=== PATIENT | female | born 1995 | race Caucasian/White ===

== ENCOUNTER 2021-11-05 20:01 | Emergency (ER) | payer OTHER, SELFPAY ==
[2021-11-05 21:08] VITALS: BP 143/74; PULSE 88; RESP 16; TEMP 36.8; O2SAT 97; BMI 35.2
--- NOTE | 2021-11-06 04:06 | ED.HA ---
HPI - Headache General Chief Complaint: Headache Stated Complaint: migraine and nausea Time Seen by Provider: 11/06/21 03:59 Source: patient Mode of arrival: ambulatory Limitations: no limitations History of Present Illness HPI Narrative: Patient comes to the emergency room complaining of migraine headache that started earlier today. Patient states that she has previously been diagnosed with migraines, states that her neurologist retired and has not had any medication prescribed to her since then. Patient took rpjl-tai-[id number] medications in the morning but did not help. Patient complaining of nausea, no vomiting, no visual changes. No neck pain. Related Data Previous Rx's Medication Instructions Recorded metoclopramide HCl 5 mg tablet 5 mg PO DAILY PRN nausea and 11/06/21 (Reglan) vomiting #10 tabs sumatriptan succinate 50 mg tablet See Rx Instructions PO .COMPLEX 11/06/21 #10 tabs Allergies Allergy/AdvReac Type Severity Reaction Status Date / Time No Known Allergies Allergy Unverified 12/10/19 16:43 [No Known Allergies*] Review of Systems Review of Systems: Constitutional : No Weight loss, No Fever, No Chills, No Night Sweats, No Fatigue, No Malaise ENT/Mouth : No Hearing loss, No Ear Pain, No Nasal Congestion, No Sinus Pain, No Hoarseness, No sore throat, No Rhinorrhea, No Swallowing Difficulty Eyes: No Eye Pain, No Swelling, No Redness, No Foreign Body, No Discharge, No Vision Changes Cardiovascular : No Chest Pain, No SOB, No Dyspnea on Exertion, No Orthopnea, No Edema, No Palpitations Respiratory : No Cough, No Sputum, No Wheezing, No Smoke Exposure, No Dyspnea Gastrointestinal : Complaining of Nausea, No Vomiting, No Diarrhea, No Constipation, No abdominal Pain, No Hematochezia, No Melena Genitourinary : no irregular bleeding, No Dysuria, No Urinary Frequency, No Hematuria, No Urinary Incontinence, No Urgency, No Flank Pain, No Urinary Flow Changes, No Hesitancy Musculoskeletal : No joint pain, No Myalgias, No Joint Swelling Skin : No Skin Lesions, No rash Neuro : No Weakness, No Numbness, No Paresthesias, No Loss of Consciousness, No Dizziness, complaining of a migraine headache Psych : No Anxiety/Panic, No Depression, No SI/HI/AH/VH, No Social Issues, Heme/Lymph: No Bruising, No Bleeding,No Lymphadenopathy Endocrine : No Polyuria, No Polydipsia, No Temperature Intolerance [facility] Past Medical History Medical History (Updated 11/06/21 @ 04:07 by Stefany Ferrara MD) Migraine Social History Social History Advance Directives: No Advance Directives Information Provided: No Physical Exam Vital Signs: Vital Signs: Last Vital Signs Temp 98.2 F 11/05/21 21:08 Pulse 88 11/05/21 21:08 Resp 16 11/05/21 21:08 BP 143/74 H 11/05/21 21:08 Pulse Ox 97 11/05/21 21:08 O2 Del Method 11/05/21 21:08 BMI result Body Mass Index 35.2 Const: Other: Appearance: Alert. Oriented X3. No acute distress. Well-appearing Eyes: Pupils equal, round and reactive to light. Does not seem to have photophobia ENT: Pharynx normal. Neck: Normal inspection. Neck supple. No lymph nodes noted. No crepitus CVS: Normal heart rate and rhythm. Pulses normal. Normal S1 and S2 Respiratory: No respiratory distress. Breath sounds normal. No Wheezing. No rales Abdomen: Soft and nontender. No rigidity. No distention. Skin: Skin warm and dry. Normal skin color. Normal skin turgor. Extremities: No lower extremity edema. No Lacerations. No Rash Neuro: Oriented X 3. No motor deficit. No sensory deficit. Moving all extremities. No slurred speech. CN 2 through 12 grossly intact Psych: calm, cooperative, normal affect Course Course Course Narrative: Patient receiving IV fluids, IV Toradol, Reglan and Benadryl 04:55, patient states she feels much better, headache has resolved Patient states that she has used sumatriptan in the past with good results. Discharge Plan Discharge Clinical Impression: Migraine Patient Disposition: Home, Self-Care Instructions: Migraine Headache (ED) Additional Instructions: Please follow-up with your primary care physician tomorrow. If you have any worsening or new symptoms, please return to the emergency room or call 911 Prescriptions: New sumatriptan succinate 50 mg tablet See Rx Instructions .ROUTE .COMPLEX Qty: 10 0RF Rx Instructions: take 1 tab at onset of headache; if no relief may repeat 1 tab after at least 2 hrs; max = 4 tabs/24 hr metoclopramide HCl [Reglan] 5 mg tablet 5 mg PO DAILY PRN (Reason: nausea and vomiting) Qty: 10 0RF
[2021-11-06] MEDS: Ketorolac Tromethamine 30 MG/ML VIAL IVPUSH (04:22)
[2021-11-06] MEDS: diphenhydrAMINE HCL 50 MG/ML VIAL 25 MG IVPUSH (04:22)
[2021-11-06] MEDS: Metoclopramide HCl 10 MG/2 ML VIAL IVPUSH (04:23)
[2021-11-06] MEDS: 0.9 % Sodium Chloride 1,000 ML 999 ML IVCONT (04:24)
== END 2021-11-06 05:24 | disposition home or self-care (01) ==
PROVIDERS: Emergency Provider Emergency Medicine; PCP Nurse Practitioner Family
DX: G43.909 Migraine, unspecified, not intractable, without status migrainosus (principal)
CPT/HCPCS: 96374; 96375; 99284; J1200; J1885; J2765

== ENCOUNTER 2023-10-01 19:38 | Emergency (ER) | payer OTHER, SELFPAY ==
--- NOTE | 2023-10-01 20:58 | ED_ITS ---
HPI - General Adult General Chief complaint: Headache Stated complaint: Migraine Time Seen by Provider: 10/01/23 23:38 Source: patient Mode of arrival: ambulatory Limitations: no limitations History of Present Illness HPI narrative: Patient is a 27-year-old female who presents to the emergency department for evaluation a migraine headache. She reports history of chronic migraines since she was a child. States she has not seen a neurologist in many years. She typically uses bzbe-haj-nqqnimm medications such as ibuprofen and Tylenol but has not had any relief. In the past she has tried sumatriptan as well with some relief. This headache has been constant for the past 3 days diffusely across the frontal region with associated photophobia and intermittent nausea. She denies dizziness, vision changes, neck pain, neck stiffness, URI symptoms, any recent head injury. Related Data Previous Rx's ?Medication ?Instructions ?Recorded metoclopramide HCl 5 mg tablet 5 mg PO DAILY PRN nausea and 11/06/21 (Reglan) vomiting #10 tabs sumatriptan succinate 50 mg tablet See Rx Instructions PO .COMPLEX 11/06/21 #10 tabs Allergies Allergy/AdvReac Type Severity Reaction Status Date / Time No Known Allergies Allergy Verified 10/01/23 21:01 [No Known Allergies*] Review of Systems Review of Systems: Yes all other systems are reviewed and are negative PMFSH Past Medical History Attestation statement: The following information was validated with the patient. Source: old records reviewed Medical History Migraine Social History Social History Advance Directives: No Advance Directives Information Provided: No Physical Exam ED Vital Signs: Vital Signs - 24 hr 10/01/23 20:59 10/01/23 22:57 Temperature 97.8 F 98.5 F Pulse Rate 86 84 Respiratory Rate 18 16 Blood Pressure 138/56 L 125/74 Pulse Oximetry 97 96 Oxygen Delivery Method Room Air Room Air BMI result Body Mass Index 44.0 Appearance: Alert.?Oriented to person, place and time. No acute distress.?Normal affect. Eyes: Pupils equal, round and reactive to light.? ENT: Pharynx normal.?? Neck: Normal inspection.? Neck supple.?? CVS: Heart sounds normal. Normal heart rate and rhythm.? Pulses normal.?? Respiratory: No respiratory distress.? Lung sounds clear to auscultation bilaterally?? Abdomen: Soft and non-tender. Normoactive bowel sounds. Skin: Skin warm and dry.? Normal skin color.? Extremities: No lower extremity edema.? Neuro: Moves all extremities spontaneously. Sensation intact bilaterally. CN II- XII intact. No focal neuro deficits. Ambulates with normal steady gait. Course Course Course Narrative: RME, this is a rapid medical exam performed by Meliton Mcallister please refer to primary provider for complete H&P- 27 year old female presents for evaluation of headaches. She has a history of migraines and has had this headache for the last 3 days. She does not currently have a neurologist. She complains of nausea and photophobia. She complains of headaches almost daily. Reevaluation(s) Reevaluation #1: Advised by nursing staff that patient left without completing treatment. She had 1 IV insertion attempts that was unsuccessful and evidently she became quite upset after that and walked out of the department with steady gait. Medical Decision Making Medical Decision Making MDM Narrative: Patient is a 27-year-old female past medical history of migraines who presents to the emergency department reporting a migraine headache. Overall she is well- appearing, nontoxic, afebrile. She has no focal neurological deficits. Symptoms at this time most consistent with migraine, clinically have low suspicion for ICH, SDH, intracranial mass, would defer CT of the head is there is no acute change from her typical migraine pattern. Given she has not received relief from uowj-bhc-xzveyzs analgesics will trial 1 L normal saline IV fluid, Toradol IV, Reglan IV, Benadryl IV and plan to re-evaluate. Differential Diagnosis Differential Diagnoses: The differential diagnosis associated with the presentation includes (See narrative above) Admission/Observation Consideration of admission/observation: Escalation of care including admission/observation considered Lab Data MDM Lab Attestation statement: I reviewed the patient's lab results. Urinalysis with pyuria, squamous epithelial cells and 4+ urine bacteria, no symptoms, most likely urogenital contamination. HCG negative. Labs: Lab Results 10/01/23 Range/Units 22:52 Urine Color Yellow Urine Appearance Turbid Urine pH 7.5 (5.0-9.0) Ur Specific [place] 1.025 (1.005-1.025) Urine Protein Trace (Neg-Trace) mg/dL Urine Glucose (UA) Negative (Negative) mg/dL Urine Ketones Negative (Negative) mg/dL Urine Blood Negative (Negative) Urine Nitrite Negative (Negative) Ur Leukocyte Esterase Small (1+) H (Negative) Urine RBC 0-2 (0-2) /HPF Urine WBC 21-50 H (0-5) /HPF Ur Squamous Epith Cells >20 (0-2) /HPF Urine Bacteria 4+ (None Seen) Hyaline Casts 0-2 (0-2) /LPF Urine Test NEGATIVE (NEGATIVE) Tests considered The following testing was considered but not selected: See narrative above Prescription Management I considered prescription management with: Pain Medication Discharge Plan Discharge Clinical Impression: Migraine Patient Disposition: Left W/O Completing Treatment Additional Instructions: Please follow-up with your primary care provider. You can return back to emergency department any new or worsening symptoms or concerns. Prescriptions: No Action sumatriptan succinate 50 mg tablet See Rx Instructions .ROUTE .COMPLEX Qty: 10 0RF Rx Instructions: take 1 tab at onset of headache; if no relief may repeat 1 tab after at least 2 hrs; max = 4 tabs/24 hr metoclopramide HCl [Reglan] 5 mg tablet 5 mg PO DAILY PRN (Reason: nausea and vomiting) Qty: 10 0RF Discharge Date/Time: 10/02/23 01:26
[2023-10-01 20:59] VITALS: BP 138/56; PULSE 86; RESP 18; TEMP 36.6; O2SAT 97; BMI 44.0
[2023-10-01 22:57] VITALS: BP 125/74; PULSE 84; RESP 16; TEMP 36.9; O2SAT 96
[2023-10-01 23:06] LABS: Appearance Urine Turbid; Color Urine Yellow; Glucose Urine UA Negative (Negative); Leukocyte Esterase Urine Small (1+) (Negative); Nitrite Urine Negative (Negative); PH 7.5 (5.0-9.0); Specific Gravity - Urine 1.025 (1.005-1.025); UMIC TRIGGER UACC YES; Urine Blood Negative (Negative); Urine Ketones Negative (Negative); Urine Protein Trace mg/dL (Neg-Trace)
[2023-10-01 23:08] LABS: Urine Pregnancy NEGATIVE (NEGATIVE)
[2023-10-01 23:11] LABS: UPreg QC Valid YES
[2023-10-01 23:12] LABS: Bacteria Urine 4+ (None Seen); Hyaline Casts Urine 0-2 /LPF (0-2); RBC Urine 0-2 /HPF (0-2); Squamous Epithelial Cell Urine >20 /HPF (0-2); UACC Culture Trigger YES; WBC Urine 21-50 /HPF (0-5)
--- NOTE | 2023-10-02 01:21 | PC.NURSE ---
pt wanted to leave, pt made aware of the doctors being tied up with a priority 1 pt. pt still wanted to leave, pt had no iv this rn checked.
== END 2023-10-02 01:26 | disposition left against medical advice (07) ==
PROVIDERS: Physician Assistant; Emergency Provider Emergency Medicine; PCP Nurse Practitioner Family
DX: G43.809 Other migraine, not intractable, without status migrainosus (principal); H53.149 Visual discomfort, unspecified; R11.0 Nausea
CPT/HCPCS: 81001; 81025; 87086; 99283

== ENCOUNTER 2025-02-04 08:12 | Emergency (ER) | payer OTHER, SELFPAY ==
--- NOTE | ~2025-02-04 | US_ITS ---
EXAMINATION: US OBSTETRICAL ULTRASOUND CLINICAL INFORMATION: Vaginal bleeding and cramping. Rule out ectopic . COMPARISON: None available. LMP: 12/26/2024. Gestational age by maternal dates is 5 weeks 5 days. Estimated date of delivery by maternal dates is 10/02/2025. TECHNIQUE: Transabdominal and transvaginal first trimester OB ultrasound. Transabdominal imaging limited due to empty bladder. FINDINGS: The uterus is anteverted and normal in size and shape. Endometrial thickness measures 0.7 cm. No intrauterine gestational sac is seen. There is a 1.7 x 1.7 x 1.6 cm subserosal right uterine body fibroid. There is a 6 mm intramural cyst in the fundus. MATERNAL ADNEXA: The right maternal ovary measures 4 x 1.4 x 1.8 cm. Normal The left maternal ovary is not seen. There is no significant maternal adnexal mass. No maternal pelvic ascites. US/US OB pelvic and transvaginal IMPRESSION: No intrauterine seen. Normal right ovary. Left ovary not seen. No adnexal mass or ascites. Differential would include early intrauterine that is too early to see, miscarriage and ectopic . Correlation with quantitative beta hCG and follow-up pelvic ultrasound in one week recommended. Electronically signed by: Zoya Morgan MD 02/04/2025 10:44 AM SOFYA
[2025-02-04 08:28] VITALS: BP 125/75; PULSE 96; RESP 16; TEMP 36.7; O2SAT 96; BMI 41.7
[2025-02-04 08:40] LABS: MANUAL DIFF FLAG NO
[2025-02-04 08:47] VITALS: BP 122/78; PULSE 104; RESP 20; TEMP 37.1; O2SAT 96
--- NOTE | 2025-02-04 08:56 | ED_ITS ---
HPI - General Chief complaint: Vaginal Bleeding Stated complaint: cramping vaginal bleeding Time Seen by Provider: 02/04/25 08:35 Source: patient, RN notes reviewed and old records reviewed Mode of arrival: ambulatory Limitations: no limitations History of Present Illness ED Provider: NOEMI Prado HPI Narrative: 29-year-old female with medical history of migraines presents to the ED due to an episode of vaginal bleeding. Patient states she went to the bathroom this morning, and when wiping she noticed small amount of bright red blood on the tissue paper that is associated with lower abdominal cramping that is now more mild in intensity. She reports LMP approximately 6 weeks ago 12/26/24, and is trying to get established with [facility]. She has not yet started vitamins. Additionally, patient states she has had a sinus infection due to significant nasal congestion and pressure in her sinuses over the last 9 days, and feels as if her symptoms have been constant, they have not worsened but are not improving. Denies nausea, vomiting, diarrhea, urinary symptoms Related Data Previous Rx's ?Medication ?Instructions ?Recorded metoclopramide HCl 5 mg tablet 5 mg PO DAILY PRN nause a and 11/06/21 (Reglan) vomiting #10 tabs sumatriptan succinate 50 mg tablet See Rx Instructions PO .COMPLEX 11/06/21 #10 tabs amoxicillin 875 mg-potassium 1 tab PO BID #14 tabs clavulanate 125 mg tablet Allergies Allergy/AdvReac Type Severity Reaction Status Date / Time No Known Allergies (No Known Allergy Verified 02/04/25 08:30 Allergies*) [facility] Past Medical History Medical History Migraine Social History Social History Advance Directives: No Advance Directives Information Provided: No Physical Exam 2 Vital Signs: Vital Signs: Last Vital Signs Temp 98 F 02/04/25 12:05 Pulse 91 02/04/25 12:05 Resp 18 02/04/25 12:05 BP 121/80 02/04/25 12:05 Pulse Ox 99 02/04/25 12:05 O2 Del Method Room Air 02/04/25 12:05 BMI result Body Mass Index 41.7 GENERAL APPEARANCE: ?AxOx4, generally well-appearing, no acute distress. HEENT: ?NC, AT. MMM. EOMI, clear conjunctiva, oropharynx clear. NECK: ?Supple without lymphadenopathy.? No stiffness or restricted ROM. HEART:? Normal rate and regular rhythm, normal S1/S2, no m/r/g LUNGS:? CTAB, moving air well. No crackles or wheezes are heard. ABDOMEN: ?Soft, nontender, nondistended, no rigidity : no lesions, vesicles, or abnormalities visualized on the external genitalia, mild amount of blood and mucus coming from cervical os BACK: No CVAT, no obvious deformity. EXTREMITIES: ?Without cyanosis, clubbing or edema. NEUROLOGICAL: ?Grossly nonfocal. Alert and oriented, moving all 4 extremities. Observed to ambulate with normal gait. Skin: ?Warm and dry without any rash. Medical Decision Making Medical Decision Making MDM Narrative: 9-year-old female with medical history of migraines presents to the ED due to an episode of vaginal bleeding when wiping after urinating this morning with small volume of bright red blood on tissue associated with lower abdominal cramping that was worse this morning but feels more mild now. Endorses sinus infection over past 9 days with nasal congestion and pressure in the sinuses. VS on initial observation-BP 125/75, pulse rate of 96, respiratory rate of 16, afebrile with oral temp of 90 degrees, O2 saturation 96 percent on room air. On physical exam lungs clear to auscultation bilaterally, cardiac exam reveals normal rate and rhythm without murmurs/rubs/gallops, abdomen is soft, nondistended, no guarding, no rigidity, nontender to palpation. Labs reveal leukocytosis of 13.4, H&H stable, mild transaminitis with an AST of 36, ALT of 39, no electrolyte abnormalities, beta hCG is 26. UA with 1+ urine protein, 3+ urine blood, 1+ leukocyte esterase, >20RBC, 11-20 WBC, 6-10 squamous epithelial cells, 1+ urine bacteria. Due to patient with vaginal bleeding, cramping, with a beta hCG of 26 which should be much higher at 6 weeks of gestational age, will obtain ultrasound to evaluate for ectopic . Course 10:56- US does not reveal intrauterine , no significant fluid seen, recommendation is for repeat pelvic ultrasound in 1 week. I spoke with OBGYN Dr. Short who recommends the patient return to the ED in 48 hours for re-evaluation with hCG quant to determine if repeat ultrasound is needed or not. I counseled patient on strict return precautions including increased vaginal bleeding, increased abdominal pain, nausea, and vomiting. Patient is not established with OBGYN and is concerned of where she can follow up. I explained she can return to to the ED for repeat HCG and transvaginal ultrasound if she is unable to get care by her primary care provider or public works inspector. Patient is planning on returning to ED for follow up. Patient has a leukocytosis of 13.4, has been experiencing nasal congestion, and pressure in the sinuses over the last 9 days. Patient will be discharged with 7 day course of Augmentin which is safe in 1st trimester should the patient have a viable . Patient feels well enough to go home for self- care, and is in agreement with the plan. Differential Diagnosis Differential Diagnoses: The differential diagnosis associated with the presentation includes Threatened Incomplete Inevitable Complete miscarriage Septic miscarriage ectopic Admission/Observation Consideration of admission/observation: Escalation of care including admission/observation considered Lab Data MDM Lab Attestation statement: I reviewed the patient's lab results. 02/04/25 08:37 02/04/25 08:37 Labs: Lab Results 02/04/25 02/04/25 Range/Units 08:37 09:30 WBC 13.4 H (4.8-10.8) X10*3/uL RBC 4.52 (4.20-5.50) X10*6/uL Hgb 13.8 (12.0-16.0) g/dl Hct 41.2 (37.0-47.0) % MCV 91.2 (80.0-98.0) fL MCH 30.5 (27.0-33.0) pg MCHC 33.5 (31.0-35.0) g/dl RDW 13.1 (11.0-16.0) % Plt Count 336 (160-400) X10*3/uL MPV 9.6 (9.4-12.3) fL Immature Gran % (Auto) 0.6 H (0.0-0.4) % Neut % (Auto) 53.7 (45-73) % Lymph % (Auto) 33.0 (20-40) % [place] % (Auto) 7.5 (2-11) % Eos % (Auto) 4.6 H (0-4) % Baso % (Auto) 0.6 (0-2) % Lymph # (Auto) 4.4 (1.2-4.9) X10*3/uL [place] # (Auto) 1.0 (0.1-1.2) X10*3/uL Eos # (Auto) 0.6 H (0.0-0.4) X10*3/uL Baso # (Auto) 0.1 (0.0-0.2) X10*3/uL Abs Immat Gran (auto) 0.08 H (0.00-0.03) X10*3/uL Absolute Neuts (auto) 7.2 (2.0-8.3) x10*3/uL Absolute Nucleated RBC 0.000 (0.0-0.012) X10*3/uL Nucleated RBC % (auto) 0.0 (0.0-0.2) /100WBC Sodium 138 (135-145) mmol/L Potassium 4.5 (3.3-5.1) mmol/L Chloride 111 H (96-108) mmol/L Carbon Dioxide 18 L (22-29) mmol/L Anion Gap 14 (12-20) BUN 13 (9-16) mg/dL Creatinine 0.73 (0.5-1.4) mg/dL Estim Creat Clear Calc 125.5 Estimated GFR > 60 Random Glucose 83 (60-115) mg/dL Calcium 9.0 (8.4-10.2) mg/dL Total Bilirubin 0.2 (0.0-1.0) mg/dL AST 36 H (5-31) U/L ALT 39 H (0-31) U/L Alkaline Phosphatase 88 (39-117) U/L Total Protein 7.2 (6.5-8.0) g/dL Albumin 4.0 (3.5-5.0) g/dL Beta HCG, Quant 26 mIU/mL Urine Color Dark Yellow Urine Appearance Cloudy Urine pH 5.5 (5.0-9.0) Ur Specific [place] 1.025 (1.005-1.025) Urine Protein 30 (1+) H (Neg-Trace) mg/dL Urine Glucose (UA) Negative (Negative) mg/dL Urine Ketones Trace (Negative) mg/dL Urine Blood Large (3+) H (Negative) Urine Nitrite Negative (Negative) Ur Leukocyte Esterase Small (1+) H (Negative) Urine RBC >20 H (0-2) /HPF Urine WBC 11-20 H (0-5) /HPF Ur Squamous Epith Cells 6-10 (0-2) /HPF Urine Bacteria 1+ (None Seen) Hyaline Casts 0-2 (0-2) /LPF Independent Interpretation I performed an independent interpretation of an: Ultrasound Interpretation: I personally interpreted the ultrasound which does not reveal an intrauterine at this time, I agree with the radiologist's interpretation Radiology Impression Discussion of test interpretation with radiology: I have reviewed the radiologist's reading. Radiologist Impression: U/S OB transvaginal FINDINGS: The uterus is anteverted and normal in size and shape. Endometrial thickness measures 0.7 cm. No intrauterine gestational sac is seen. There is a 1.7 x 1.7 x 1.6 cm subserosal right uterine body fibroid. There is a 6 mm intramural cyst in the fundus. MATERNAL ADNEXA: The right maternal ovary measures 4 x 1.4 x 1.8 cm. Normal The left maternal ovary is not seen. There is no significant maternal adnexal mass. No maternal pelvic ascites. US/US OB pelvic and transvaginal IMPRESSION: No intrauterine seen. Normal right ovary. Left ovary not seen. No adnexal mass or ascites. Differential would include early intrauterine that is too early to see, miscarriage and ectopic . Correlation with quantitative beta hCG and follow-up pelvic ultrasound in one week recommended. Electronically signed by: Zoya Morgan MD 02/04/2025 10:44 AM [facility] [place] Dictated By: Zoya Morgan MD Signed By: <Electronically signed by Zoya Morgan MD in OV> 02/04/25 1044 Independent Historian Clinical information obtained from an independent historian. History obtained from or confirmed by: Spouse (Significant other at bedside) External Record Review External record reviewed: Inpatient record, Office record and Outpatient record Chronic Conditions Patient?s care impacted by: Other (6 weeks gestation) Discharge Plan Discharge Clinical Impression: First trimester bleeding Patient Disposition: Home, Self-Care Additional Instructions: You were evaluated in the emergency department due to vaginal bleeding during your 1st trimester of . Your ultrasound today did not see an intrauterine at this time, your blood work showed a beta hCG quant of 26 which is very low for suspected 6 weeks of gestation. You need to return to the emergency department in 48 hours for repeat hCG testing, and physical exam to determine if ultrasound is needed or not. Swabs for chlamydia, gonorrhea, bacterial vaginosis, Ginger, and trichomoniasis were taken today. If these are positive you will be called and is started on the appropriate treatment. You are being prescribed a 7 day course of Augmentin for sinus infection. Please complete the entire course of this medication even if symptoms improve. It is possible that you are experiencing a miscarriage or ectopic meaning the fetus is not attached to the uterine lining and may be attached within one of the fallopian tubes. Cramping and vaginal bleeding during this time is normal. Please return to the emergency department if you experience increased abdominal pain (sharp, stabbing pains), increased vaginal bleeding, dizziness, lightheadedness, nausea, vomiting, or any new/worsening/concerning symptoms. Prescriptions: New amoxicillin-pot clavulanate 875-125 mg tablet 1 tab PO BID Qty: 14 0RF No Action sumatriptan succinate 50 mg tablet See Rx Instructions .ROUTE .COMPLEX Qty: 10 0RF Rx Instructions: take 1 tab at onset of headache; if no relief may repeat 1 tab after at least 2 hrs; max = 4 tabs/24 hr metoclopramide HCl [Reglan] 5 mg tablet 5 mg PO DAILY PRN (Reason: nausea and vomiting) Qty: 10 0RF Stand Alone Forms: Work/School Release Print Language: Latvian
--- OUTSIDE RECORDS SUMMARY | 2025-02-04 08:59 | XMS_ITS | Encounter Summary ---
Author Organization [facility] Address [address] [place] [address] Phone Care Team Providers Care Sustainable Communities Designer Name Role Phone Marissa Morgan NP Primary Care Provider [phone] Reason for Visit * Reason Comments Med Refill Encounter Details Date Type Department Care Team (Late st Contact Info) Description 01/14/2020 Refill [facility] [place] [address] Clara Rodriges, Encounter for surveillance of contraceptive pills Social History Tobacco Use Types Packs/Day Years Used Date Smoking Tobacco: Never Comments:Never Smoker Alcohol Use Standard Drinks/Week Comments No 0 (1 standard drink = 0.6 oz pur e alcohol) Comments No Sex and Gender Information Value Date Recorded Sex Assigned at Not on file Legal Sex Female 6:16 PM EDT Gender Identity Not on file Sexual Orientation Straight 02/08/2020 10 :09 PM EST documented as of this encounter Miscellaneous Notes * Telephone Encounter - Erin Naik MA - 01/14/2020 11:16 AM EDT Last visit (telemed) 09/09/19, with negative blood preg. Left message for Janeen to call and schedule physical. documented in this encounter Plan of Treatment Not on file documented as of this encounter Visit Diagnoses Diagnosis Encounter for surveillance of contraceptive pills documented in this encounter Care Teams Sustainable Communities Designer Relationship Specialty Start Date End Date Marissa Morgan NP [facility] [place] [address] PCP - General Pediatrics 07/08/20 documented as of this encounter
--- OUTSIDE RECORDS SUMMARY | 2025-02-04 08:59 | XMS_ITS | Clinical Summary ---
Author Organization [facility] Address [address] [place] [address] Phone Care Team Providers Care Steeping Press Tender Name Role Phone Marissa Morgan NP Primary Care Provider [phone] Allergies Active Allergy Reactions Criticality Noted Date Comments Environmental Ragweed Medications ADDERALL XR 30 MG 24 hr capsule Take 1 tablet by mouth daily. 8 Active ADDERALL XR 5 MG 24 hr capsule Take 1 tablet by mouth daily. 8 Active buPROPion XL 150 MG 24 hr tablet TAKE ONE TABLET BY MOUTH EVERY 24 HOURS 1 0 Active Lactobacillus-Inul in ([facility]) capsule Take 1 capsule by mouth once daily. 3 0 Active guanFACINE 1 MG tablet Take 1 mg by mouth once daily. 2 0 Active venlafaxine 225 MG tablet sustained-release 24 hour 24 hr tablet Take 225 mg by mouth once daily. 1 0 Active norethindrone-ethi nyl estradiol-iron (Microgestin FE 1.530) 1.5-30 MG-MCG per tabletIndications: Encounter for surveillance of contraceptive pills Take 1 tablet by mouth once daily. 84 tablet 3 0 Active traZODone 50 MG tabletIndications: Other insomnia Take 1 tablet (50 mg total) by mouth nightly. 30 tablet 2 0 Active acyclovir 400 MG tabletIndications: Recurrent genital herpes TAKE ONE TABLET BY MOUTH THREE TIMES A DAY FOR 7 DAYS 21 tablet 0 Active cetirizine 10 MG tabletIndications: Seasonal allergic rhinitis due to other allergic trigger Take 1 tablet (10 mg total) by mouth once daily. 30 tablet 3 1 Active topiramate (Topamax) 100 MG tabletIndications: Intractable migraine without aura and without status migrainosus Take 1 tablet (100 mg total) by mouth daily. 30 tablet 3 1 Active CENTROVITE tabletIndications: Yeast infection TAKE 1 TABLET BY MOUTH DAILY. 30 each 3 1 Active Active Problems Problem Noted Date Diagnosed Date Migraine with aura 11/22/2016 Overview (11/28/2017): Classic migraine (346.00) Onset: 11/22/2016 Added by: Clara Rodriges Dysthymic disorder 11/07/2015 Overview (11/28/2017): Anxiety with depression (300.4) Onset: 11/07/2015 Added by: Clara Rodriges Assessment & Plan (01/03/2019 11:37 AM EDT): All medication provided by med provider Resolved Problems Problem Noted Date Diagnosed Date Resolved Date Sore throat 11/16/2019 02/08/2020 Assessment & Plan (11/16/2019 9:34 PM EDT): Differential includes AOM, pneumonia, viral URI, strep throat, COVID19. Rapid strep test negative, will send culture. No obvious COVID19+ contact but with sore throat will schedule for COVID testing. No signs of AOM or pneumonia. Most likely diagnosis is viral URI. Discussed supportive therapy with fluids and tylenol/ibuprofen for fever. Return for ear pain, persistent fever, trouble breathing or new symptom. Dysuria 11/16/2019 02/08/2020 Assessment & Plan (11/16/2019 9:35 PM EDT): With dysuria will check urinalysis and urine culture. If these are negative and COVID testing is negative will have patient in for a vaginal swab. Extrinsic asthma with exacerbation 09/02/2011 12/21/2017 Overview (11/28/2017): Extrinsic asthma, with (acute) exacerbation (493.02) Onset: 09/02/2011 Added by: Wendy Montalvo Immunizations Immunization Administration Dates Next Due DTaP 5 10/30/2002, 0,05/02/1998,03/02,1997 HPV, Quadrivalent 06/16/2010,12/16/2009,11/05/19 10 Hep A, ped/adol 04/02/2014,10/02/2013 Hep B, ped/adol 05/02/1998,1997,1997 Hib (PRP-T) 02/01/1999, 9,03/02/1998,12/29 IPV 10/30/2002, 0,03/02/1998,12/29 Influenza, injectable, quadrivalent 02/08/2020,1 Influenza, injectable, quadr ivalent, preservative free 12/18/2017,11/22/2016,12/31/2015,12/04,12/30/2013 Influenza, injectable, trivalent 11/04/2009 Influenza, intranasal, quadrivalent 01/03/2013 Influenza, intranasal, trivalent 12/28/2011,12/24 MMR 10/30/2002,10/31/1998 Meningococcal Conj (Menactra) MCV4P 11/07/2015,0 11/01/2008 PPD Test 03/06/1999 Tdap 01/01/2019,11/01/2008 Varicella 11/01/2008,08/01/2008,10/31/1998 Family History Medical History Relation Name Comments No Known Problems Maternal Grandfather No Known Problems Maternal Grandmother No Known Problems Mother Brenna No Known Problems Paternal Grandfather No Known Problems Paternal Grandmother No Known Problems Sister Aster Relation Name Status Comments Father not involved Alive Maternal Grandfather Maternal Grandmother Mother Brenna Alive Paternal Grandfather Paternal Grandmother Sister Aster Alive Social History Tobacco Use Types Packs/Day Years Used Date Smoking Tobacco: Never Tobacco Cessation:Counseling Given: No Comments:Never Smoker Alcohol Use Standard Drinks/Week Comments No 0 (1 standard drink = 0.6 oz pur e alcohol) Comments No Sex and Gender Information Value Date Recorded Sex Assigned at Not on file Legal Sex Female 6:16 PM EDT Gender Identity Not on file Sexual Orientation Straight 02/08/2020 10 :09 PM EST Last Filed Vital Signs Vital Sign Reading Time Taken Comments Blood Pressure 118/74 05/11/2020 3:10 PM EST Pulse 102 05/11/2020 3:10 PM EST Temperature 35.9 C (96.7 F) 05/11/2020 3:10 PM EST Respiratory Rate - - Oxygen Saturation - - Inhaled Oxygen Concentration - - Weight 80.8 kg (178 lb 3.2 oz) 05/11/2020 3:10 P M EST Height 154.9 cm (5' 1 ) 05/11/2020 3:10 PM EST Body Mass Index 33.67 05/11/2020 3:10 PM EST Plan of Treatment Health Maintenance Due Date Last Done Comments Influenza Vaccines (#1) 2024 02/08/20 20, 01/01/2019, 12/18/2017, Additional history exists COVID-19 Vaccine ( season) 2024 DTaP,Tdap,and Td Vaccines (8 - Td or Tdap) 01/01/2029 01/01/2019, 11/01/2008, 10/30/2002, Additional history exists Hepatitis B Vaccines Completed 05/02/1998, 1997, 1997 HIB Vaccines Completed 02/01/1999, 10/1998, 03/02/1998, Additional history exists IPV Vaccines Completed 10/30/2002, 04/25, 03/02/1998, Additional history exists MMR Vaccines Completed 10/30/2002, 10/31/1998 Varicella Vaccines Completed 11/01/2008, 0 08/01/2008, 10/31/1998 HPV Vaccines Completed 06/16/2010, 11/24, 11/04/2009 Hepatitis A Vaccines Completed 04/02/2014, 10/03/19 14 Meningococcal Vaccine Completed 11/07/2015, 009 Men B Vaccine Aged Out No longer elig ible based on patient's age to complete this topic Pneumococcal Vaccine Aged Out No long er eligible based on patient's age to complete this topic Procedures * Due to [place] [employer] law, this organization might not be sharing sensitive test results. Procedure Name Priority Date/Time Associated Diagnosis Comments THINPREP PAP AND C. TRACHOMATIS, N. GONORRHOEAE Routine 02/17/2020 11:39 AM EST Encounter for gynecological examination from Last 3 Months or Most Recently Relevant to Health Maintenance Results * Due to [place] [employer] law, this organization might not be sharing sensitive test results. * THIN PREP CT/GC AMP PROBE (02/17/2020 11:39 AM EST) C. TRACH AMP PROBE THIN PREP NEGATIVE (NEG) [facility] Comment: No Chlamydia Trachomatis RNA detected in this patient's sample (REFERENCE RANGE/NORMAL VALUE: NOT DETECTED) Note: This test uses tripe cooker- mediated amplification method to detect rRNA from C. Trachomatis GC AMP PROBE THIN PREP NEGATIVE (NEG) [facility] Comment: No Neisseria Gonorrhoeae RNA detected in this patient's sample (REFERENCE RANGE/NORMAL VALUE: NOT DETECTED) NOTE: This test uses tripe cooker-mediated amplification method to detect rRNA from N.Gonorrhoeae. A negative result does not preclude infection. In the case of a negative urine result, testing of an endocervical(female) or urethral (male) specimen is recommended if there is high clinical suspicion of infection. Due to very high sensitivity of Nucleic Acid Amplification Test, false positive results may occur. Therefore, specimen handling is extremely important. In patients in whom the disease is unlikely, additional sample for testing should be considered after an initial positive result. The performance characteristics of this test have not been evaluated in children. The Aptima Combo2 assay is not intended for the evaluation of suspected sexual abuse or for other medico-legal indications. The ordering provider should assess if the patient had consensual sex without risk of sexual abuse. Consult the [facility] if needed. Contact phone number . Therapeutic failure or success cannot be determined with the Aptima Combo2 assay since nucleic acid may persist following appropriate antimicrobial therapy. The Centers for Disease Control and Prevention (CDC) recommends confirmatory retesting using culture or a different nucleic acid amplification test when positive results occur, if indicated. Testing performed or reported by [facility], a Service of [facility], [facility] Kirstie Taylor, RADHA [address] Joseph Crawley MD, [employer]ator VAGINA (Vagina) 02/17/2020 1 1:39 AM EST 02/19/2020 12:10 PM EST Clara Rodriges DO LAB MICROBIOLOGY - GENERAL ELIZ PURI Final Result [facility] from Last 3 Months or Most Recently Relevant to Health Maintenance Care Teams Steeping Press Tender Relationship Specialty Start Date End Date Marissa Morgan NP [facility] [place] [address] PCP - General Pediatrics 07/08/20
--- OUTSIDE RECORDS SUMMARY | 2025-02-04 08:59 | XMS_ITS | Encounter Summary ---
Author Organization [facility] Address [address] [place] [address] Phone Care Team Providers Care Fulfillment Mail Clerk Name Role Phone Marissa Morgan NP Primary Care Provider [phone] Encounter Details Date Type Department Care Team (Late st Contact Info) Description 06/05/2010 Conversion Encounter [facility] [address] [place] [address] Social History Tobacco Use Types Packs/Day Years Used Date Smoking Tobacco: Never Assessed Comments Unknown Sex and Gender Information Value Date Recorded Sex Assigned at Not on file Legal Sex Female 6:16 PM EDT Gender Identity Not on file Sexual Orientation Straight 02/08/2020 10 :09 PM EST documented as of this encounter Plan of Treatment Not on file documented as of this encounter Visit Diagnoses Not on filedocumented in this encounter Care Teams Fulfillment Mail Clerk Relationship Specialty Start Date End Date Marissa Morgan NP [address] [place] [address] PCP - General Pediatrics 07/08/20 documented as of this encounter
[2025-02-04 09:01] LABS: Hematocrit 41.2 % (37.0-47.0); Hemoglobin 13.8 g/dl (12.0-16.0); Imm Gran Abs Auto 0.08 X10*3/uL (0.00-0.03); Imm Gran Pct Auto 0.6 % (0.0-0.4); Lymphocytes Absolute Auto 4.4 X10*3/uL (1.2-4.9); Mean Corpuscular HGB Conc 33.5 g/dl (31.0-35.0); Mean Corpuscular Hemoglobin 30.5 pg (27.0-33.0); Mean Corpuscular Volume 91.2 fL (80.0-98.0); NRBC Abs Auto 0.000 X10*3/uL (0.0-0.012); NRBC Pct Auto 0.0 /100WBC (0.0-0.2); Platelet Count 336 X10*3/uL (160-400); Red Blood Count 4.52 X10*6/uL (4.20-5.50); White Blood Count 13.4 X10*3/uL (4.8-10.8)
[2025-02-04 09:07] LABS: Alanine Aminotransferase 39 U/L (0-31); Albumin Level 4.0 g/dL (3.5-5.0); Alkaline Phosphatase 88 U/L (39-117); Anion Gap 14 (12-20); Aspartate Amino Transferase 36 U/L (5-31); Blood Urea Nitrogen 13 mg/dL (9-16); Calcium 9.0 mg/dL (8.4-10.2); Carbon Dioxide 18 mmol/L (22-29); Chloride 111 mmol/L (96-108); Creatinine Clr Calc Pharmacy 125.5; Estimated Glomerular Filt Rate > 60; Potassium 4.5 mmol/L (3.3-5.1); Sodium 138 mmol/L (135-145); Total Protein 7.2 g/dL (6.5-8.0)
[2025-02-04 09:40] LABS: Appearance Urine Cloudy; Glucose Urine UA Negative (Negative); PH 5.5 (5.0-9.0); Specific Gravity - Urine 1.025 (1.005-1.025); UMIC TRIGGER UACC YES
[2025-02-04 09:48] LABS: UACC Culture Trigger YES
--- NOTE | 2025-02-04 11:28 | PM.GYNCN ---
[employer] - CN: HPI Data of Consult Consult date: 02/04/25 Primary Care Provider: Rafia Mcguire NP Consult Narrative Narrative: I was consulted on Janeen Fish who is a 29 year old female presenting to the emergency room because of an episode of vaginal bleeding associated with mild pelvic cramping . LMP approximately 6 weeks ago 12/26/24, and is trying to get established with [facility]. She has not yet started vitamins. No other associated symptom The workup in the emergency room include the following: WBC= 13.4, H&H 13.8/41.2 HCG 26 Pelvic ultrasound showed the following: IMPRESSION: No intrauterine seen. Normal right ovary. Left ovary not seen. No adnexal mass or ascites. Differential would include early intrauterine that is too early to see, miscarriage and ectopic . Correlation with quantitative beta hCG and follow-up pelvic ultrasound in one week recommended. cc:: CC: OB [facility] Past Medical History Medical History Migraine Social History Social History Advance Directives: No Advance Directives Information Provided: No Meds Allergies Allergy/AdvReac Type Severity Reaction Status Date / Time No Known Allergies (No Known Allergy Verified 02/04/25 08:30 Allergies*) [employer] Physical Exam Vitals Vital signs: Temp Pulse Resp BP Pulse Ox O2 Del Method 98.7 F 104 H 20 122/78 96 Room Air 02/04/25 08:47 02/04/25 08:47 02/04/25 08:47 02/04/25 08:47 02/04/25 08:47 02/04/25 08:47 BMI result Body Mass Index 41.7 Additional Comments: Abdominal exam reported to be within normal [employer] - Results Labs 02/04/25 08:37 02/04/25 08:37 Labs: Short CBC 02/04/25 Range/Units 08:37 WBC 13.4 H (4.8-10.8) X10*3/uL Hgb 13.8 (12.0-16.0) g/dl Hct 41.2 (37.0-47.0) % Plt Count 336 (160-400) X10*3/uL BMP 02/04/25 08:37 Sodium 138 Potassium 4.5 Chloride 111 H Carbon Dioxide 18 L BUN 13 Creatinine 0.73 Calcium 9.0 Liver Function 02/04/25 Range/Units 08:37 Total Bilirubin 0.2 (0.0-1.0) mg/dL AST 36 H (5-31) U/L ALT 39 H (0-31) U/L Alkaline Phosphatase 88 (39-117) U/L Albumin 4.0 (3.5-5.0) g/dL Urine 02/04/25 Range/Units 09:30 Urine Color Dark Yellow Urine Appearance Cloudy Urine pH 5.5 (5.0-9.0) Ur Specific [place] 1.025 (1.005-1.025) Urine Protein 30 (1+) H (Neg-Trace) mg/dL Urine Glucose (UA) Negative (Negative) mg/dL Assessment and Plan (1) First trimester bleeding: Status: Acute Differential diagnosis include early , SAB or ectopic . Recommended to LUZ MARINA Dinh in the ER the following: Pelvic exam, GC/CT with BV panel. Instructions to be given to the patient to come back to emergency room in 48 hours for re-evaluation and repeat hCG quantitative. SAB/ectopic warnings to be given to the patient, she is to come back to ER in case of pelvic pain and or vaginal bleeding. I spent a total of 20 minutes reviewing the chart, communicating with the emergency room provider and documenting in the medical record.
[2025-02-04 12:05] VITALS: BP 121/80; PULSE 91; RESP 18; TEMP 36.6; O2SAT 99
[2025-02-04 13:26] VITALS: BP 121/80; PULSE 91; RESP 18; TEMP 36.6; O2SAT 99
[2025-02-04 15:30] LABS: Bacterial Vaginosis PCR NEGATIVE (Negative); Candida Group PCR NOT DETECTED (Not Detect); Candida glab krusei PCR NOT DETECTED (Not Detect); Trichomonas vaginalis PCR NOT DETECTED (Not Detect)
[2025-02-04 16:33] LABS: CT PCR NOT DETECTED (Not Detect.); NG PCR NOT DETECTED (Not Detect.)
== END 2025-02-04 13:58 | disposition home or self-care (01) ==
PROVIDERS: Emergency Provider Emergency Medicine; PCP Nurse Practitioner Family
DX: O20.9 Hemorrhage in early pregnancy, unspecified (principal); Z3A.01 Less than 8 weeks gestation of pregnancy; R10.22 Pelvic and perineal pain left side; Z79.899 Other long term (current) drug therapy
CPT/HCPCS: 36415; 76801; 76817; 80053; 81001; 81515; 84702; 85025; 87086; 87491; 87591; 99284

== ENCOUNTER → 2025-02-04 09:26 | Outpatient (BNV) | payer OTHER, SELFPAY | PROVIDERS: Emergency Provider Emergency Medicine; PCP Nurse Practitioner Family; Visit Provider Radiology Diagnostic Radiology | DX: O02.81 Inappropriate change in quantitative human chorionic gonadotropin (hCG) in early pregnancy (principal); N93.9 Abnormal uterine and vaginal bleeding, unspecified | CPT/HCPCS: 76801; 76817 ==

== ENCOUNTER 2025-02-06 07:57 | Emergency (ER) | payer OTHER, SELFPAY ==
[2025-02-06 08:09] VITALS: BP 124/77; PULSE 80; RESP 14; TEMP 37; O2SAT 98; BMI 41.6
--- NOTE | 2025-02-06 08:22 | ED_ITS ---
HPI - General Adult General Chief complaint: Recheck/Abnormal Lab/Rx Stated complaint: Issues Time Seen by Provider: 02/06/25 08:07 Source: patient Mode of arrival: ambulatory Limitations: no limitations History of Present Illness ED Provider: LUZ MARINA Velazquez HPI narrative: Chief Complaint: ?I was told to come back for a blood test after a possible miscarriage.? History of Present Illness: The patient is a G0 female who returns today for repeat quantitative ?-hCG testing after a suspected early loss. She was seen in this emergency department a few days ago for cramping and vaginal bleeding. At that visit, ?- hCG was positive; ultrasound reportedly showed no intrauterine , and she was advised to wait and return for follow-up labs. She received no medications or injections (no Rhogam). Currently she reports scant vaginal bleeding, using ~2?3 pads per hour, but states bleeding is less than at the prior visit. She denies abdominal pain or worsening cramping. Last menstrual period was in December. She has never been before, has no history of miscarriage, and has been trying to conceive. She is not on control and does not currently have an established laboratory director. Related Data Previous Rx's ?Medication ?Instructions ?Recorded metoclopramide HCl 5 mg tablet 5 mg PO DAILY PRN nause a and 11/06/21 (Reglan) vomiting #10 tabs sumatriptan succinate 50 mg tablet See Rx Instructions PO .COMPLEX 11/06/21 #10 tabs amoxicillin 875 mg-potassium 1 tab PO BID #14 tabs clavulanate 125 mg tablet Allergies Allergy/AdvReac Type Severity Reaction Status Date / Time No Known Allergies (No Known Allergy Verified 02/06/25 08:14 Allergies*) Review of Systems 2 Review of Systems: Yes all other systems are reviewed and are negative PMFSH Past Medical History Attestation statement: The following information was validated with the patient. Source: old records reviewed and nursing notes reviewed Medical History Migraine Social History Social History Advance Directives: No Advance Directives Information Provided: No Do you have a plan to hurt others: No Plan Patient : Yes Physical Exam ED Exam Exam: Appearance: Alert.? Oriented X3.? No acute distress.? Head: Normocephalic, atraumatic, no step-offs or deformities Eyes: Pupils equal, round and reactive to light.? ENT: Pharynx normal.? Neck: Normal inspection.? Neck supple.? CVS: Normal heart rate and rhythm.? Pulses normal.? Respiratory: No respiratory distress.? Breath sounds normal.? Abdomen: Soft and nontender.? Skin: Skin warm and dry.? Normal skin color.? Normal skin turgor.? Extremities: No lower extremity edema.? No calf ttp. 5/5 strength to bilateral upper and lower extremities Back: no CVA tenderness bilaterally Neuro: Oriented X 3.? No motor deficit.? No sensory deficit. CN 2-12 intact Vital Signs: Vital Signs - 24 hr 02/06/25 08:09 Temperature 98.6 F Pulse Rate 80 Respiratory Rate 14 Blood Pressure 124/77 Pulse Oximetry 98 Oxygen Delivery Method Room Air BMI result Body Mass Index 41.6 vss Course Reevaluation(s) Reevaluation #1: Patient's CBC with hemoglobin of 14.4, hematocrit 42.5 on previous visit on 02/04/2025 hemoglobin was 13.8 and hematocrit 41.2 this shows that hemoglobin and hematocrit are improving. Leukocytosis improved from last time. Patient denies abdominal pain. Chemistry with no acute findings needing intervention. Beta hCG did down trend from 26-5 today this does support likely diagnosis of threatened miscarriage. Time: 09:16 Reevaluation #2: I did ask OBGYN about this case as patient does not have her own OBGYN provider Dr. Short he would like patient to follow up in 48 hours for repeat hCG and follow up until hCG is 0. I did educate patient on findings of her lab results today. She is Rh negative no indication for RhoGAM. StrictReturn precautions have been discussed with the patient Time: 09:23 Medical Decision Making Medical Decision Making [facility] Narrative: 0833 The patient presents for follow-up after suspected early loss. Currently stable with scant bleeding and no abdominal pain. Problem #1: Possible early loss (rule out miscarriage) Assessment: History of positive ?-hCG with initial cramping/bleeding; currently minimal bleeding, hemodynamically stable, abdomen non-tender. Need to trend ?- hCG and assess Rh status. Plan: * Repeat quantitative -hCG today. * Obtain CBC to assess hemoglobin/hematocrit and to check for anemia. * Obtain CMP to screen electrolytes and metabolic profile. * Verify blood type/Rh; administer Rhogam if patient is Rh-negative and not previously given. * Arrange outpatient follow-up with OBGYN upon receipt of lab results. No sign of hemoodynamic instability, unlikley acute blood loss anemia or acute abdomen. Other differential includes implantation bleeding Differential Diagnosis Differential Diagnoses: The differential diagnosis associated with the presentation includes (No sign of hemoodynamic instability, unlikley acute blood loss anemia or acute abdomen. ) * Early loss (miscarriage): Most likely given recent positive ?-hCG, cramping, and vaginal bleeding in a woman attempting conception. * Ectopic : Should be considered in any patient with positive ?-hCG and bleeding, especially if no intrauterine is seen on ultrasound. * Anovulatory bleeding: Possible in women with irregular cycles, though patient reports normal cycles; less likely but considered. * Endometrial pathology (polyp, hyperplasia, malignancy): Postmenopausal status increases risk for endometrial abnormalities presenting as abnormal bleeding. * Coagulopathy: Bleeding disorders may present with abnormal uterine bleeding, though no personal or family history reported. * Cervical pathology (polyp, malignancy): Cervical lesions can cause postmenopausal bleeding; no pelvic exam performed to assess. * Vaginal atrophy or trauma: Atrophic changes or trauma in postmenopausal women may result in bleeding. * Hormonal imbalance: Endocrine dysfunction can cause abnormal bleeding, though less likely given age and history. * Other causes of abnormal uterine bleeding in postmenopausal women: Includes rare etiologies such as infection or medication side effects. Admission/Observation Consideration of admission/observation: Escalation of care including admission/observation considered Lab Data MDM Lab Attestation statement: I reviewed the patient's lab results. 02/06/25 08:38 02/06/25 08:38 Labs: Lab Results 02/06/25 Range/Units 08:38 WBC 10.9 H (4.8-10.8) X10*3/uL RBC 4.77 (4.20-5.50) X10*6/uL Hgb 14.4 (12.0-16.0) g/dl Hct 42.5 (37.0-47.0) % MCV 89.1 (80.0-98.0) fL MCH 30.2 (27.0-33.0) pg MCHC 33.9 (31.0-35.0) g/dl RDW 12.2 (11.0-16.0) % Plt Count 331 (160-400) X10*3/uL MPV 9.1 L (9.4-12.3) fL Immature Gran % (Auto) 0.5 H (0.0-0.4) % Neut % (Auto) 47.0 (45-73) % Lymph % (Auto) 41.3 H (20-40) % [place] % (Auto) 6.5 (2-11) % Eos % (Auto) 4.3 H (0-4) % Baso % (Auto) 0.4 (0-2) % Lymph # (Auto) 4.5 (1.2-4.9) X10*3/uL [place] # (Auto) 0.7 (0.1-1.2) X10*3/uL Eos # (Auto) 0.5 H (0.0-0.4) X10*3/uL Baso # (Auto) 0.0 (0.0-0.2) X10*3/uL Abs Immat Gran (auto) 0.05 H (0.00-0.03) X10*3/uL Absolute Neuts (auto) 5.1 (2.0-8.3) x10*3/uL Absolute Nucleated RBC 0.000 (0.0-0.012) X10*3/uL Nucleated RBC % (auto) 0.0 (0.0-0.2) /100WBC Sodium 140 (135-145) mmol/L Potassium 4.4 (3.3-5.1) mmol/L Chloride 107 (96-108) mmol/L Carbon Dioxide 23 (22-29) mmol/L Anion Gap 14 (12-20) BUN 11 (9-16) mg/dL Creatinine 0.71 (0.5-1.4) mg/dL Estim Creat Clear Calc 128.9 Estimated GFR > 60 Random Glucose 90 (60-115) mg/dL Calcium 9.6 D (8.4-10.2) mg/dL Total Bilirubin 0.2 (0.0-1.0) mg/dL AST 26 (5-31) U/L ALT 39 H (0-31) U/L Alkaline Phosphatase 91 (39-117) U/L Total Protein 7.4 (6.5-8.0) g/dL Albumin 4.4 (3.5-5.0) g/dL Beta HCG, Quant 5 mIU/mL Blood Type A Positive External Record Review External record reviewed: Inpatient record, Office record, Outpatient record, Prior outpatient labs, Prior outpatient radiology, Primary care record and Outside ED record Chronic Conditions Patient?s care impacted by: Other (obesity ) Discharge Plan Discharge Clinical Impression: Vaginal bleeding, Elevated serum hCG Patient Disposition: Home, Self-Care Instructions: Miscarriage (ED) Additional Instructions: Take your medications as prescribed. If you were prescribed antibiotics today, it is important that you take your medication to their entirety, do not skip any doses, do not finish them early. Follow-up with your primary care provider this week. Return to the emergency department with new or worsening symptoms. Such as fevers, chills, chest pain, shortness of breath, nausea, vomiting, dizziness, headache, vision changes, lethargy In case of emergency call 911 You have experienced a decrease in your hormone (hCG) level from 26 to 5 OBGYN recommends repeat HCG in 48 hours What to expect: * You may have some light bleeding or spotting for a few more days. This is normal. * Mild cramping can occur as your body recovers. * Your hCG level is now very low When to seek medical attention: * Heavy bleeding (soaking more than two pads per hour for two hours) * Severe abdominal pain or persistent cramping * Fever over 100.4?F (38?C) * Dizziness or feeling faint Emotional support: * Experiencing loss can be difficult. Support is available if you need to talk or seek counseling. Next steps: * If you wish to try for again, it is safe to do so after your next normal period. If you have any concerns or experience any of the symptoms listed above, please contact your healthcare provider promptly. Prescriptions: No Action sumatriptan succinate 50 mg tablet See Rx Instructions .ROUTE .COMPLEX Qty: 10 0RF Rx Instructions: take 1 tab at onset of headache; if no relief may repeat 1 tab after at least 2 hrs; max = 4 tabs/24 hr metoclopramide HCl [Reglan] 5 mg tablet 5 mg PO DAILY PRN (Reason: nausea and vomiting) Qty: 10 0RF amoxicillin-pot clavulanate 875-125 mg tablet 1 tab PO BID Qty: 14 0RF Referrals: Rafia Mcguire NP [Primary Care Provider, Internal Medicine] Print Language: Khmer
--- OUTSIDE RECORDS SUMMARY | 2025-02-06 08:27 | XMS_ITS | Clinical Summary ---
Author Organization [facility] Address [address] [place] [address] Phone Care Team Providers Care Knitting Machine Tender Name Role Phone Marissa Morgan NP Primary Care Provider [phone] Allergies Active Allergy Reactions Criticality Noted Date Comments Environmental Ragweed Medications ADDERALL XR 30 MG 24 hr capsule Take 1 tablet by mouth daily. 8 Active ADDERALL XR 5 MG 24 hr capsule Take 1 tablet by mouth daily. 8 Active buPROPion XL 150 MG 24 hr tablet TAKE ONE TABLET BY MOUTH EVERY 24 HOURS 1 0 Active Lactobacillus-Inul in ([facility]) capsule Take 1 capsule by mouth once [...] complete this topic Procedures * Due to [place] work law, this organization might not be sharing sensitive test results. Procedure Name Priority Date/Time Associated Diagnosis Comments THINPREP PAP AND C. TRACHOMATIS, N. GONORRHOEAE Routine 02/17/2020 11:39 AM EST Encounter for gynecological examination from Last 3 Months or Most Recently Relevant to Health Maintenance Results * Due to [place] work law, this organization might not be sharing sensitive test results. * THIN PREP CT/GC AMP PROBE (02/17/2020 11:39 AM EST) C. TRACH AMP PROBE THIN PREP NEGATIVE (NEG) [facility] Comment: No Chlamydia Trachomatis RNA detected in this patient's sample (REFERENCE RANGE/NORMAL VALUE: NOT DETECTED) Note: This test uses middle school counselor- mediated amplification method to detect rRNA from C. Trachomatis GC AMP PROBE THIN PREP NEGATIVE (NEG) [facility] Comment: No Neisseria Gonorrhoeae RNA detected in this patient's sample (REFERENCE RANGE/NORMAL VALUE: NOT DETECTED) NOTE: This test uses middle school counselor-mediated amplification method to detect rRNA from N.Gonorrhoeae. [...] without risk of sexual abuse. Consult the [facility] if needed. Contact phone number . Therapeutic failure or success cannot be determined with the Aptima Combo2 assay since nucleic acid may persist following appropriate antimicrobial therapy. The Centers for Disease Control and Prevention (CDC) recommends confirmatory retesting using culture or a different nucleic acid amplification test when positive results occur, if indicated. Testing performed or reported by [facility], a Service of [facility], [employer] Kirstie Taylor, [place] [address] Joseph Crawley MD, [employer] VAGINA (Vagina) 02/17/2020 1 1:39 AM EST 02/19/2020 12:10 PM EST Clara Rodriges DO LAB MICROBIOLOGY - GENERAL ELIZ PURI Final Result [facility] from Last 3 Months or Most Recently Relevant to Health Maintenance Care Teams Knitting Machine Tender Relationship Specialty Start Date End Date Marissa Morgan NP [facility] [facility] [place] [address] PCP - General Pediatrics 07/08/20
--- OUTSIDE RECORDS SUMMARY | 2025-02-06 08:27 | XMS_ITS | Encounter Summary ---
Author Organization [facility] Address [address] [place] [address] Phone Care Team Providers Care Web Manager Name Role Phone Marissa Morgan NP Primary Care Provider [phone] Reason for Visit * Reason Comments Med Refill Encounter Details Date Type Department Care Team (Late st Contact Info) Description 01/14/2020 Refill [facility] [facility] [place] [address] Clara Rodriges, Encounter for surveillance of contraceptive [...] pills documented in this encounter Care Teams Web Manager Relationship Specialty Start Date End Date Marissa Morgan NP [facility] [facility] [place] [address] PCP - General Pediatrics 07/08/20 documented as of this encounter
--- OUTSIDE RECORDS SUMMARY | 2025-02-06 08:28 | XMS_ITS ---
Author Name [facility] Organization Unknown History of Medication Use Medication Directions Dispensed Refills Start Date End Date Stat us amoxicillin 12/28/2024 active metronidazole 12/11/2024 active Macrobid 12/09/2024 active Pyridium 12/09/2024 active Adderall XR 11/25/2024 active cetirizine HCl 07/03/2024 active bupropion HCl 06/30/2024 active trazodone HCl 06/30/2024 active Encounters Encounter Type Encounter Reason Primary Diagnosis Location Date Ambulatory TBE Streptococcal pharyngitis [facility] ([facility]) 12/28/2024 Care Team Organization Name Specialty Phone Email Start Date End Da te [facility] 12/28/2024 [facility] 12/28/2024
--- OUTSIDE RECORDS SUMMARY | 2025-02-06 08:28 | XMS_ITS | Encounter Summary ---
Author Organization [facility] Address [address] [place] [address] Phone Care Team Providers Care Loans Officer Name Role Phone Marissa Morgan NP Primary Care Provider [phone] Encounter Details Date Type Department Care Team (Late st Contact Info) Description 06/05/2010 Conversion Encounter [facility] [address] [place] [address] Social History Tobacco Use Types Packs/Day Years [...] on filedocumented in this encounter Care Teams Loans Officer Relationship Specialty Start Date End Date Marissa Morgan NP [address] [place] [address] PCP - General Pediatrics 07/08/20 documented as of this encounter
[2025-02-06 08:44] LABS: Hematocrit 42.5 % (37.0-47.0); Hemoglobin 14.4 g/dl (12.0-16.0); Imm Gran Abs Auto 0.05 X10*3/uL (0.00-0.03); Imm Gran Pct Auto 0.5 % (0.0-0.4); Lymphocytes Absolute Auto 4.5 X10*3/uL (1.2-4.9); MANUAL DIFF FLAG NO; Mean Corpuscular HGB Conc 33.9 g/dl (31.0-35.0); Mean Corpuscular Hemoglobin 30.2 pg (27.0-33.0); Mean Corpuscular Volume 89.1 fL (80.0-98.0); NRBC Abs Auto 0.000 X10*3/uL (0.0-0.012); NRBC Pct Auto 0.0 /100WBC (0.0-0.2); Platelet Count 331 X10*3/uL (160-400); Red Blood Count 4.77 X10*6/uL (4.20-5.50); White Blood Count 10.9 X10*3/uL (4.8-10.8)
[2025-02-06 09:09] LABS: Alanine Aminotransferase 39 U/L (0-31); Albumin Level 4.4 g/dL (3.5-5.0); Alkaline Phosphatase 91 U/L (39-117); Anion Gap 14 (12-20); Aspartate Amino Transferase 26 U/L (5-31); Blood Urea Nitrogen 11 mg/dL (9-16); Calcium 9.6 mg/dL (8.4-10.2); Carbon Dioxide 23 mmol/L (22-29); Chloride 107 mmol/L (96-108); Creatinine Clr Calc Pharmacy 128.9; Estimated Glomerular Filt Rate > 60; Potassium 4.4 mmol/L (3.3-5.1); Sodium 140 mmol/L (135-145); Total Protein 7.4 g/dL (6.5-8.0)
[2025-02-06 09:30] VITALS: BP 118/70; PULSE 80; RESP 16; TEMP 37; O2SAT 98
--- NOTE | 2025-02-06 09:30 | PM.GYNCN ---
BINDER COVERSTITCH - CN: HPI Data of Consult Consult date: 02/06/25 Primary Care Provider: Rafia Mcguire NP Consult Narrative Narrative: I was consulted on Adiel Fish who is presenting to the emergency room today for repeat quantitative hCG testing after a suspected early loss. She was seen in this emergency department a few days ago for cramping and vaginal bleeding. At that visit, hCG was 26; ultrasound reportedly showed no intrauterine , and she was advised to wait and return for follow-up labs. She received no medications or injections (no Rhogam). Currently she reports scant vaginal bleeding and is less than at the prior visit. She denies abdominal pain or worsening cramping. If the repeat hCG today came back at 5 cc:: CC: OB [facility] Past Medical History Medical History Migraine Social History Social History Advance Directives: No Advance Directives Information Provided: No Do you have a plan to hurt others: No Plan Patient : Yes Meds Allergies Allergy/AdvReac Type Severity Reaction Status Date / Time No Known Allergies (No Known Allergy Verified 02/06/25 08:14 Allergies*) BINDER COVERSTITCH Physical Exam Vitals Vital signs: Temp Pulse Resp BP Pulse Ox O2 Del Method 98.6 F 80 14 124/77 98 Room Air 02/06/25 08:09 02/06/25 08:09 02/06/25 08:09 02/06/25 08:09 02/06/25 08:09 02/06/25 08:09 BMI result Body Mass Index 41.6 Additional Comments: Exam reported by Trudi Velazquez as benign, abdominal exam soft and nontender BINDER COVERSTITCH - Results Labs 02/06/25 08:38 02/06/25 08:38 Labs: Short CBC 02/06/25 Range/Units 08:38 WBC 10.9 H (4.8-10.8) X10*3/uL Hgb 14.4 (12.0-16.0) g/dl Hct 42.5 (37.0-47.0) % Plt Count 331 (160-400) X10*3/uL BMP 02/06/25 08:38 Sodium 140 Potassium 4.4 Chloride 107 Carbon Dioxide 23 BUN 11 Creatinine 0.71 Calcium 9.6 D Liver Function 02/06/25 Range/Units 08:38 Total Bilirubin 0.2 (0.0-1.0) mg/dL AST 26 (5-31) U/L ALT 39 H (0-31) U/L Alkaline Phosphatase 91 (39-117) U/L Albumin 4.4 (3.5-5.0) g/dL Assessment and Plan (1) First trimester bleeding: Status: Acute Recommended the following: Repeat hCG quantitative in 48 hours to followed down to 0, SAB/ectopic warnings to be given to the patient, instructions to be given to the patient to come back to emergency room in case of vaginal bleeding and or pelvic pain and follow-up in the office within 48 hours. I spent a total of 20 minutes reviewing the chart, talking to the emergency room provider and documenting in the medical record.
== END 2025-02-06 09:31 | disposition home or self-care (01) ==
PROVIDERS: Physician Assistant; Emergency Provider Emergency Medicine; PCP Nurse Practitioner Family
DX: N93.9 Abnormal uterine and vaginal bleeding, unspecified (principal); R89.1 Abnormal level of hormones in specimens from other organs, systems and tissues
CPT/HCPCS: 36415; 80053; 84702; 85025; 86900; 86901; 99283; 99284

== ENCOUNTER → 2025-02-06 08:17 | Outpatient (BNV) | payer OTHER, SELFPAY | PROVIDERS: Emergency Provider Emergency Medicine; PCP Nurse Practitioner Family; Visit Provider Obstetrics & Gynecology | DX: O20.9 Hemorrhage in early pregnancy, unspecified (principal) | CPT/HCPCS: 99283 ==

== ENCOUNTER 2025-02-08 08:58 | Emergency (ER) | payer OTHER, SELFPAY ==
[2025-02-08] VITALS (9 sets, daily range): BP systolic 101–132; BP diastolic 60–78; PULSE 96–110; RESP 14–19; TEMP 36.1–36.8; O2SAT 96–99; BMI 41.2
--- NOTE | ~2025-02-08 | CT_ITS ---
EXAMINATION: CT ABDOMEN AND PELVIS WITH CONTRAST CLINICAL INFORMATION: Abdominal pain COMPARISON: None available. TECHNIQUE: Multidetector volumetric images were obtained from the superior aspect of the liver through the pubic symphysis following administration 85 mL of Omnipaque 350 intravenous contrast. Sagittal and coronal reformatted images were obtained on the technologist's workstation. Oral contrast: No This CT examination was performed using dose optimization techniques as appropriate, variously including the following: *Automated exposure control *Adjustment of mA and/or kV according to patient size (this includes techniques or standardized protocols for targeted exams where dose is matched to indication/reason for exam; i.e. extremities or head) *Use of iterative reconstruction technique FINDINGS: LUNG BASES: See CT chest report obtained on the same day. Opacities in subpleural bilateral lower lobes, probably atelectasis. LIVER, GALLBLADDER, AND BILIARY TREE: Hepatomegaly. Right lobe measures 21.3 cm craniocaudal. Low liver attenuation suggesting hepatic steatosis. No suspicious lesions. No intrahepatic biliary duct dilatation. No gallstones. No gallbladder inflammatory changes identified. PANCREAS: Unremarkable. . No inflammatory changes. SPLEEN: Unremarkable. ADRENAL GLANDS: Unremarkable. KIDNEYS AND URETERS: Symmetric enhancement. No suspicious renal lesions. No renal or ureteral calculi. No hydronephrosis. BLADDER: Unremarkable. GASTROINTESTINAL TRACT: Stomach is nondistended. Nonobstructive bowel gas pattern. No pericolonic inflammatory changes. Appendix is normal. Peritoneum: No free fluid. No pneumoperitoneum. No fluid collections. No significant mesenteric inflammatory changes. ABDOMINAL WALL: No significant hernia is appreciated. LYMPH NODES: No pathologically enlarged lymph nodes are seen. VASCULAR: Normal caliber aorta. Portal vein is enhancing. PELVIC VISCERA: No acute findings OSSEOUS STRUCTURES: No acute or destructive process. Bony sclerosis marginating bilateral SI joints. CT/CT abdomen pelvis w IV con IMPRESSION: * No acute intra-abdominal findings identified. Cause of the patient's symptoms has not been determined. * Hepatomegaly. Hepatic steatosis. * Additional notes as above.. Fleischner guidelines were followed. Electronically signed by: Edd Price MD 02/08/2025 03:42 PM [facility] [place]
--- NOTE | ~2025-02-08 | CT_ITS ---
EXAMINATION: CT ANGIOGRAM CHEST CLINICAL INFORMATION: Cough, tachycardia, concern for PE. COMPARISON: None available. TECHNIQUE: Multiple axial images were obtained through the chest after the administration of 50 mL of Omnipaque 350 intravenous contrast. Extensive vascular post-processing including two-dimensional and three-dimensional reformatted images were created and reviewed on an independent workstation. This CT examination was performed using dose optimization techniques as appropriate, variously including the following: *Automated exposure control *Adjustment of mA and/or kV according to patient size (this includes techniques or standardized protocols for targeted exams where dose is matched to indication/reason for exam; i.e. extremities or head) *Use of iterative reconstruction technique FINDINGS: VASCULAR: Study quality is diagnostic. There is no evidence of pulmonary embolus. The main pulmonary artery is normal in size. There is no evidence of right heart strain. There is no evidence of contrast reflux into the hepatic IVC. The aorta is normal in caliber and course without evidence of aneurysm or acute aortic syndrome. The heart size is normal. There is no pericardial effusion. The great vessels branch normally and are patent. LUNGS: The lungs are well inspired and clear without abnormal opacities. Minimal gravity dependent atelectasis in the bilateral bases. No evidence of interstitial disease. There is a 4 mm nonspecific nodule in the lingula (series 8, image 65). No effusions or pneumothorax. Small airways appear normal. Central airways are patent. PLEURA: There is no pleural effusion. No pleural mass or thickening. MEDIASTINUM: Partially imaged thyroid is normal. No lymphadenopathy or mass in the mediastinum. Airways are patent. Esophagus is unremarkable. There may be a small type I hiatus hernia. AXILLA/CHEST WALL: No masses or lymphadenopathy. UPPER ABDOMEN: Refer to the dedicated CT abdomen pelvis performed concurrently. OSSEOUS STRUCTURES: Unremarkable. No suspicious lytic or blastic bone lesions. CT/CT angio chest PE protocol IMPRESSION: 1. There is no evidence of pulmonary embolus. 2. There is no evidence of acute aortic syndrome or aneurysm. 3. The lungs are clear bilaterally. 4. There is a 4 mm pulmonary nodule in the lingula. One-year Follow-up recommended if the patient is high risk. Electronically signed by: Dani Hannah MD 02/08/2025 03:44 PM [facility] [place]
--- NOTE | 2025-02-08 09:15 | ED.GENADULT ---
HPI - General Adult General Chief complaint: General Medical Stated complaint: Cough Congestion Running Nose Time Seen by Provider: 02/08/25 09:20 Source: patient, family (Significant other at bedside), RN notes reviewed and old records reviewed Mode of arrival: ambulatory Limitations: no limitations History of Present Illness ED Provider: NOEMI Prado HPI narrative: 29-year-old female with medical history of migraines presents to the ED due to dizziness. Patient states that she woke up this morning feeling weak, and dizzy as if the room is spinning around her, and 1 episode of watery diarrhea. 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 due to her dizziness and left come to the ED for evaluation. I saw the patient during her initial presentation on 02/04, the patient had been complaining of sinus pressure and pain for the past 9 days, was discharged with a 7 day course of Augmentin. Patient states she did not take this medication and feels like her symptoms improved. Patient has been seen recently in the ED due to probable miscarriage with decreasing hCG levels. Patient states she was cleared however upon chart review patient was last seen in the department 2 days ago on 02/06/25 and the discharge instructions states she needed to follow up in another 48 hours for further evaluation. Patient states she is still mildly spotting. Denies chest pain, SOB, abdominal pain, vomiting, urinary symptoms, headaches, visual changes MD complaint: Weak, dizzy Related Data Previous Rx's ?Medication ?Instructions ?Recorded metoclopramide HCl 5 mg tablet 5 mg PO DAILY PRN nausea and 11/06/21 (Reglan) vomiting #10 tabs sumatriptan succinate 50 mg tablet See Rx Instructions PO .COMPLEX 11/06/21 #10 tabs amoxicillin 875 mg-potassium 1 tab PO BID #14 tabs 02/04/25 clavulanate 125 mg tablet meclizine 25 mg tablet (Dramamine 25 mg PO DAILY PRN dizziness #30 02/08/25 (meclizine)) tabs Allergies Allergy/AdvReac Type Severity Reaction Status Date / Time No Known Allergies (No Known Allergy Verified 02/08/25 09:08 Allergies*) Review of Systems Review of Systems: Yes all other systems are reviewed and are negative PMFSH Past Medical History Attestation statement: The following information was validated with the patient. Source: old records reviewed and nursing notes reviewed Medical History Migraine Physical Exam ED Vital Signs: Vital Signs - 24 hr 02/08/25 14:33 02/08/25 16:28 02/08/25 16:28 Temperature 98.3 F Pulse Rate 99 106 H 107 H Respiratory Rate 14 Blood Pressure 102/60 102/69 101/64 Pulse Oximetry 98 Oxygen Delivery Method Room Air 02/08/25 16:29 02/08/25 18:08 02/08/25 18:33 Temperature 98.1 F 98.1 F Pulse Rate 110 H 103 H 103 H Respiratory Rate 16 16 Blood Pressure 119/65 126/62 126/62 Pulse Oximetry 96 96 Oxygen Delivery Method Room Air Room Air BMI result Body Mass Index 41.2 GENERAL APPEARANCE: ?AxOx4, generally well-appearing, no acute distress. HEENT: ?[place], AT. MMM. EOMI, clear conjunctiva, no nystagmus, oropharynx clear. NECK: ?Supple without lymphadenopathy.? No stiffness or restricted ROM. HEART:? Normal rate and regular rhythm, normal S1/S2, no m/r/g LUNGS:? CTAB, moving air well. No crackles or wheezes are heard. ABDOMEN: ?Soft, nontender, nondistended BACK: No CVAT, no obvious deformity. EXTREMITIES: ?Without cyanosis, clubbing or edema. NEUROLOGICAL: ?Grossly nonfocal. Alert and oriented, moving all 4 extremities. Observed to ambulate with normal gait. Skin: ?Warm and dry without any rash. Course Reevaluation(s) Reevaluation #1: Upon time for discharge, patient states she is feeling ?off?, patient does have an unresolved tachycardia at 110 beats per minute after 1 L IV fluids. We will obtain CTA PE, CT abdomen for further evaluation. Time: 12:22 Reevaluation #2: CTA PE negative for pulmonary embolism, opacities. CT abdomen and pelvis reveals hepatic steatosis without any emergent findings. Patient states her dizziness feels much improved from when she 1st presented this morning. Patient is able to ambulate without ataxic ga Time: 16:12 Reevaluation #3: Received in sign-out at change of shift pending repeat evaluation after rehydration. The patient received IV fluids and reports that her dizziness is significantly improved. I reviewed her workup which ultimately did not show any concerning findings. The patient reports feeling much better in his ready for discharge home. Vital signs remained stable Time: 18:14 Additional Reevaluation(s): 02/09/25- I failed to discuss the incidental finding of a 4mm pulmonary nodule that recommends follow up if high risk. I called the patient today to discuss this. Patient states she does not have a history of cigarette smoking however, she does vape intermittently and has history of pulmonary cancer in her family. I counseled the patient to discuss these findings with her primary care doctor (which she is established with [facility]) to determine if she needs follow up imaging. Patient understood our conversation and will follow up with her primary care doctor to discuss futher imaging. Medications Administered Discontinued Medications Generic Name Dose Route Start Last Admin Trade Name Freq PRN Reason Stop Dose Admin Lactated Ringer's 1,000 mls @ 999 mls/hr 02/08/25 10:08 02/08/25 11:34 Lr IV 02/08/25 11:08 Infused .Q1H1M ONE Infusion Lactated Ringer's 1,000 mls @ 999 mls/hr 02/08/25 16:19 02/08/25 18:09 Lr IV 02/08/25 17:19 Infused .Q1H1M ONE Infusion Iohexol 100 ml 02/08/25 14:39 02/08/25 14:39 Iohexol 350 Mg/Ml 100 Ml Infus..Btl IV 02/08/25 14:40 85 ml ONCE ONE Administration Meclizine HCl 25 mg 02/08/25 09:47 02/08/25 10:03 Meclizine Hcl 25 Mg Tablet PO 02/08/25 09:48 25 mg ONCE ONE Administration Ondansetron HCl 4 mg 02/08/25 09:47 02/08/25 10:03 Ondansetron Hcl 4 Mg/2 Ml Vial IVPUSH 02/08/25 09:48 4 mg ONCE ONE Administration Ondansetron HCl 4 mg 02/08/25 13:42 02/08/25 13:49 Ondansetron Hcl 4 Mg/2 Ml Vial IVPUSH 02/08/25 13:43 4 mg ONCE ONE Administration Medical Decision Making Medical Decision Making MDM Narrative: 29-year-old female with medical history of migraines presents to the ED due to dizziness. Patient states that she woke up this morning feeling weak, and dizzy as if the room is spinning around her, and 1 episode of watery diarrhea. Has been seen in the department for possible miscarriage as her HCG was not increasing appropriately. Patient was initially seen on 02/04, and then on 02/06 with HCG of 5. VS on initial observation-BP 132/76, pulse rate of 108, respiratory rate of 16, afebrile with oral temp of 97?, O2 saturation 97% on room air. On physical exam patient is well-appearing, alert and oriented, EOMI without pain, pupils reactive to consensual light and accommodation, no nystagmus however when assessing extraocular movements this does reproduce her dizziness, lungs clear to auscultation bilaterally, cardiac exam reveals mildly tachycardic rate and rhythm without murmurs/rubs/gallops, abdomen is soft, nondistended, no rigidity, no guarding, nontender, extremities without edema, patient is neurologically intact without any deficits observed Plan: Labs, EKG, UA, - Patient medicated with 1L IV fluids, 25 mg p.o. meclizine, 4 mg IV Zofran Labs reveal leukocytosis of 11.4, no evidence of anemia, no electrolyte abnormalities, mild transaminitis with an AST of 32, ALT of 42, beta hCG quant <2. UA with concentrated urine, 2+ urine blood negative nitrites, negative leukocyte esterase, trace urine bacteria, no urinary symptoms. Patient most likely positive for blood as she has just experienced a miscarriage over the last week. EKG reveals sinus tachycardia, no ST-elevation/depression, T-wave abnormality, lengthened QT, patient without chest pain. Patient with persistent symptoms of dizziness, tachycardia, we will further evaluate with CT chest, CT abdomen and pelvis. CTA chest negative for PE or opacities does show a 4mm pumonary nodule with follow up in 1 year if high risk, CT abdomen pelvis reveals data steatosis without any emergent findings. Patient's orthostatic vital signs are positive, patient states she has not been drinking fluids over the past few days. Patient will receive an additional L of fluids and reassessed. Differential Diagnosis Differential Diagnoses: The differential diagnosis associated with the presentation includes Dysrhythmia Electrolyte abnormality dehydration Vertigo Viral illness Admission/Observation Consideration of admission/observation: Escalation of care including admission/observation considered Lab Data MDM Lab Attestation statement: I reviewed the patient's lab results. 02/08/25 10:01 02/08/25 10:37 Labs: Lab Results 02/08/25 02/08/25 02/08/25 Range/Units 10:01 10:37 15:05 WBC 11.4 H (4.8-10.8) X10*3/uL RBC 5.03 (4.20-5.50) X10*6/uL Hgb 15.3 (12.0-16.0) g/dl Hct 45.2 (37.0-47.0) % MCV 89.9 (80.0-98.0) fL MCH 30.4 (27.0-33.0) pg MCHC 33.8 (31.0-35.0) g/dl RDW 12.3 (11.0-16.0) % Plt Count 348 (160-400) X10*3/uL MPV 9.7 (9.4-12.3) fL Immature Gran % (Auto) 0.3 (0.0-0.4) % Neut % (Auto) 45.3 (45-73) % Lymph % (Auto) 43.0 H (20-40) % Kerr % (Auto) 7.6 (2-11) % Eos % (Auto) 3.3 (0-4) % Baso % (Auto) 0.5 (0-2) % Lymph # (Auto) 4.9 (1.2-4.9) X10*3/uL Kerr # (Auto) 0.9 (0.1-1.2) X10*3/uL Eos # (Auto) 0.4 (0.0-0.4) X10*3/uL Baso # (Auto) 0.1 (0.0-0.2) X10*3/uL Abs Immat Gran (auto) 0.04 H (0.00-0.03) X10*3/uL Absolute Neuts (auto) 5.2 (2.0-8.3) x10*3/uL Absolute Nucleated RBC 0.000 (0.0-0.012) X10*3/uL Nucleated RBC % (auto) 0.0 (0.0-0.2) /100WBC Hold Purple Top SEE NOTE Sodium 136 (135-145) mmol/L Potassium 4.0 (3.3-5.1) mmol/L Chloride 103 (96-108) mmol/L Carbon Dioxide 25 (22-29) mmol/L Anion Gap 12 (12-20) BUN 14 (9-16) mg/dL Creatinine 0.67 (0.5-1.4) mg/dL Estim Creat Clear Calc 135.9 Estimated GFR > 60 Random Glucose 79 (60-115) mg/dL Calcium 9.2 (8.4-10.2) mg/dL Magnesium 2.0 (1.6-2.6) mg/dL Total Bilirubin 0.2 (0.0-1.0) mg/dL AST 32 H (5-31) U/L ALT 42 H (0-31) U/L Alkaline Phosphatase 93 (39-117) U/L Total Protein 7.7 (6.5-8.0) g/dL Albumin 4.6 (3.5-5.0) g/dL Beta HCG, Quant Cancelled < 2 Urine Color Yellow Urine Appearance Clear Urine pH 7.5 (5.0-9.0) Ur Specific [place] >= 1.030 H (1.005-1.025) Urine Protein Negative (Neg-Trace) mg/dL Urine Glucose (UA) Negative (Negative) mg/dL Urine Ketones Negative (Negative) mg/dL Urine Blood Moderate (2+) H (Negative) Urine Nitrite Negative (Negative) Ur Leukocyte Esterase Negative (Negative) Urine RBC 0-2 (0-2) /HPF Urine WBC 0-5 (0-5) /HPF Ur Squamous Epith Cells 6-10 (0-2) /HPF Urine Bacteria Trace (None Seen) Hyaline Casts 0-2 (0-2) /LPF Influenza Type A (PCR) NEGATIVE (Negative) Influenza Type B (PCR) NEGATIVE (Negative) RSV RNA Qual (PCR) NEGATIVE (Negative) SARS-CoV-2 RNA (RT-PCR) NEGATIVE (Negative) Independent Interpretation I performed an independent interpretation of an: EKG Interpretation: I personally interpreted the EKG which reveals sinus tachycardia without ST-elevation/depression, T-wave abnormality, lengthened QT Vent. Rate : 107 BPM Atrial Rate : 107 BPM P-R Int : 114 ms QRS Dur : 72 ms QT Int : 322 ms P-R-T Axes : 60 59 47 degrees QTcB Int : 429 ms Sinus tachycardia Otherwise normal ECG No previous ECGs available Independent Historian Clinical information obtained from an independent historian. History obtained from or confirmed by: Other (Significant other at bedside) External Record Review External record reviewed: Inpatient record, Office record and Outpatient record Chronic Conditions Patient?s care impacted by: Other (Migraines) Discharge Plan Discharge Clinical Impression: Vertigo, Viral illness Patient Disposition: Home, Self-Care Instructions: Dizziness (ED) Additional Instructions: You were evaluated in the emergency department today for nausea, weakness, dizziness. Your labs showed a mild elevation in your white blood cell count of 11.4, no anemia, no electrolyte abnormalities your hCG today was undetectable at <2. Your EKG showed an elevated heart rate at 107 beats per minute however no emergent findings. It is unclear at this time if your dizziness is due to vertigo or a viral illness. You are being discharged home with meclizine that you can use for dizziness should it persist. Please follow up with your primary care doctor for further evaluation as you may need vestibular physical therapy if your dizziness persists. Please return to the emergency department if you experience worsening dizziness, chest pain, shortness of breath, difficulty breathing, fevers over 100.4?, abdominal pain, nausea, vomiting or any new/worsening/concerning symptoms. Prescriptions: New meclizine [Dramamine (meclizine)] 25 mg tablet 25 mg PO DAILY PRN (Reason: dizziness) Qty: 30 0RF No Action sumatriptan succinate 50 mg tablet See Rx Instructions .ROUTE .COMPLEX Qty: 10 0RF Rx Instructions: take 1 tab at onset of headache; if no relief may repeat 1 tab after at least 2 hrs; max = 4 tabs/24 hr metoclopramide HCl [Reglan] 5 mg tablet 5 mg PO DAILY PRN (Reason: nausea and vomiting) Qty: 10 0RF amoxicillin-pot clavulanate 875-125 mg tablet 1 tab PO BID Qty: 14 0RF Stand Alone Forms: Work/School Release Interventions: ED Discharge Assessment Last Done: 02/08/25 18:33 Discharge Date/Time: 02/08/25 18:33 Print Language: Bulgarian
--- NOTE | 2025-02-08 09:31 | ECG_ITS ---
Test Reason : TACHY Blood Pressure : */* mmHG Vent. Rate : 107 BPM Atrial Rate : 107 BPM P-R Int : 114 ms QRS Dur : 72 ms QT Int : 322 ms P-R-T Axes : 60 59 47 degrees QTcB Int : 429 ms Sinus tachycardia Otherwise normal ECG No previous ECGs available Referred By: Ronaldo Prado Electronically Signed By: GEOVANY MASON
[2025-02-08] MEDS: Lactated Ringers 1,000 ML 999 ML IV ×2 (10:11→17:01)
[2025-02-08 10:13] LABS: MANUAL DIFF FLAG NO
[2025-02-08 10:31] LABS: Hematocrit 45.2 % (37.0-47.0); Hemoglobin 15.3 g/dl (12.0-16.0); Imm Gran Abs Auto 0.04 X10*3/uL (0.00-0.03); Imm Gran Pct Auto 0.3 % (0.0-0.4); Lymphocytes Absolute Auto 4.9 X10*3/uL (1.2-4.9); Mean Corpuscular HGB Conc 33.8 g/dl (31.0-35.0); Mean Corpuscular Hemoglobin 30.4 pg (27.0-33.0); Mean Corpuscular Volume 89.9 fL (80.0-98.0); NRBC Abs Auto 0.000 X10*3/uL (0.0-0.012); NRBC Pct Auto 0.0 /100WBC (0.0-0.2); Platelet Count 348 X10*3/uL (160-400); Red Blood Count 5.03 X10*6/uL (4.20-5.50); White Blood Count 11.4 X10*3/uL (4.8-10.8)
[2025-02-08 10:52] LABS: Resp Syncy Virus RNA Qual PCR NEGATIVE (Negative); SARS COV2 PCR INHOUSE NEGATIVE (Negative)
[2025-02-08 11:05] LABS: Alanine Aminotransferase 42 U/L (0-31); Albumin Level 4.6 g/dL (3.5-5.0); Alkaline Phosphatase 93 U/L (39-117); Anion Gap 12 (12-20); Aspartate Amino Transferase 32 U/L (5-31); Blood Urea Nitrogen 14 mg/dL (9-16); Calcium 9.2 mg/dL (8.4-10.2); Carbon Dioxide 25 mmol/L (22-29); Chloride 103 mmol/L (96-108); Creatinine Clr Calc Pharmacy 135.9; Estimated Glomerular Filt Rate > 60; Magnesium 2.0 mg/dL (1.6-2.6); Potassium 4.0 mmol/L (3.3-5.1); Sodium 136 mmol/L (135-145); Total Protein 7.7 g/dL (6.5-8.0)
--- NOTE | 2025-02-08 12:20 | PC.NURSE ---
Pt states feeling slightly better after medication administration. Given snacks per PA- pt able to tolerate PO. Orthostatic vitals done- pt states she felt dizzy throughout. Pt noted to still be tachycardic, HR 100s-110s. Denies CP/SOB/pain- endorsing mild lightheadedness/dizziness. LUZ MARINA Higgins made aware. Vitals updated in worklist, call anaya within reach, all needs met at this time.
[2025-02-08] MEDS: iohexoL 350 MG/ML 100 ML INFUS..BTL IV (14:39)
[2025-02-08 15:14] LABS: Appearance Urine Clear; Glucose Urine UA Negative (Negative); PH 7.5 (5.0-9.0); Specific Gravity - Urine >= 1.030 (1.005-1.025); UMIC TRIGGER UACC YES
--- NOTE | 2025-02-08 18:09 | PC.NURSE ---
pt reports improvement in dizziness after fluids, provider notified.
== END 2025-02-08 18:33 | disposition home or self-care (01) ==
PROVIDERS: Emergency Provider Emergency Medicine; PCP Nurse Practitioner Family
DX: R42 Dizziness and giddiness (principal); B34.9 Viral infection, unspecified; R05.9 Cough, unspecified; R00.0 Tachycardia, unspecified; R10.9 Unspecified abdominal pain; R53.1 Weakness; Z03.818 Encounter for observation for suspected exposure to other biological agents ruled out
CPT/HCPCS: 36415; 71275; 74177; 80053; 81001; 83735; 84702; 85025; 87637; 93005; 96361; 96374; 96375; 99285; J2405; J7120; Q9967

== ENCOUNTER → 2025-02-08 09:31 | Outpatient (BNV) | payer OTHER, SELFPAY | PROVIDERS: Emergency Provider Emergency Medicine; PCP Nurse Practitioner Family; Visit Provider Internal Medicine | DX: R00.0 Tachycardia, unspecified (principal) | CPT/HCPCS: 93010 ==

== ENCOUNTER → 2025-02-08 12:20 | Outpatient (BNV) | payer OTHER, SELFPAY | PROVIDERS: Emergency Provider Emergency Medicine; PCP Nurse Practitioner Family; Visit Provider Radiology Diagnostic Ultrasound | DX: K76.0 Fatty (change of) liver, not elsewhere classified (principal); R16.0 Hepatomegaly, not elsewhere classified; R91.1 Solitary pulmonary nodule | CPT/HCPCS: 71275; 74177 ==